=== PATIENT | female | born 2000 | race American Indian/Alaskan Native ===

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

== ENCOUNTER 2018-11-27 10:45 | Observation (INO) | payer MEDICAID, OTHER ==
--- NOTE | 2018-11-27 11:11 | Emergency Department Report ---
ED Female HPI - General Chief complaint: Vaginal Bleeding Stated complaint: BLEEDING 2WKS/PAIN Time Seen by Provider: 11/27/18 11:01 Source: patient Mode of arrival: Ambulatory Limitations: No Limitations - History of Present Illness Initial comments: Akilah is a 18 yo healthy female who is currently . She had 4 positive home tests. Her last normal menstrual period was around [place] time. She has had 12 days of vaginal spotting. Small amount of bleeding seen with wiping. She "just wants to know what's going on" with her . She had severe pelvic pain this morning. Pain is not as severe at this point. Pain is now localized to left pelvic region. This is Akilah's third . She has one full-term . She also had a previous . LMP around [place] time. EGA 8 weeks 4 days Complaint: vaginal bleeding -: Gradual, days(s) (12) Severity: mild Quality: cramping, sharp Consistency: intermittent, now resolved Improves with: none Worsens with: none Are you Now?: Yes Last Menstrual Period: 09/28/18 EDC: 07/05/19 Associated Symptoms: vaginal bleeding, abdominal pain - Related Data : 3 Para: 1 A: 1 Home Medications Medication Instructions Recorded Confirmed Last Taken No Known Home Medications [No 11/27/18 11/27/18 Unknown Reported Home Medications] Allergies Allergy/AdvReac Type Severity Reaction Status Date / Time pineapple AdvReac Itching Verified 09/11/16 18:32 ED Review of Systems ROS: Stated complaint: BLEEDING 2WKS/PAIN Other details as noted in HPI Comment: All other systems reviewed and negative Constitutional: denies: fever, malaise Respiratory: denies: cough Cardiovascular: denies: chest pain ED Past Medical Hx - Past Medical History Previous Medical History?: Yes Hx Hypertension: No Hx Congestive Heart Failure: No Hx Diabetes: No Hx Deep Vein Thrombosis: No Hx Renal Disease: No Hx Sickle Cell Disease: No Hx Seizures: No Hx Asthma: No Hx COPD: No Additional medical history: Vaginal delivery - Surgical History Additional Surgical History: x1 - Social History Smoking Status: Never Smoker Substance Use Type: None - Medications Home Medications: Home Medications Medication Instructions Recorded Confirmed Last Taken Type No Known Home Medications [No 11/27/18 11/27/18 Unknown History Reported Home Medications] ED Physical Exam - General Limitations: No Limitations General appearance: alert, in no apparent distress - Head Head exam: Present: atraumatic, normocephalic - Eye Eye exam: Present: normal appearance - ENT ENT exam: Present: mucous membranes moist - Neck Neck exam: Present: normal inspection, full ROM. Absent: tenderness, meningismus - Respiratory Respiratory exam: Present: normal lung sounds bilaterally. Absent: respiratory distress, wheezes, rales, rhonchi - Cardiovascular Cardiovascular Exam: Present: regular rate, normal rhythm, normal heart sounds. Absent: systolic murmur, diastolic murmur, rubs, gallop - GI/Abdominal GI/Abdominal exam: Present: soft, normal bowel sounds. Absent: distended, tenderness, guarding, rebound - Extremities Exam Extremities exam: Present: normal inspection - Back Exam Back exam: Present: normal inspection - Neurological Exam Neurological exam: Present: alert, oriented X3 - Psychiatric Psychiatric exam: Present: normal affect, normal mood - Skin Skin exam: Present: warm, dry, intact, normal color. Absent: rash ED Course Vital Signs 11/27/18 11/27/18 11/27/18 10:47 15:16 15:49 Temperature 97.8 F 98.4 F Pulse Rate 77 74 Respiratory 16 18 18 Rate Blood Pressure 103/71 Blood Pressure 125/68 [Left] O2 Sat by Pulse 100 100 Oximetry ED Medical Decision Making - Lab Data Result diagrams: 11/27/18 11:03 11/27/18 11:03 Laboratory Results - last 24 hr 11/27/18 11/27/18 11/27/18 11:01 11:03 11:03 WBC 4.3 L RBC 3.78 Hgb 12.7 Hct 37.3 MCV 99 H MCH 34 H MCHC 34 RDW 13.3 Plt Count 293 Lymph % (Auto) 45.7 H [place] % (Auto) 8.3 H Eos % (Auto) 0.8 Baso % (Auto) 0.9 Lymph # 2.0 [place] # 0.4 Eos # 0.0 Baso # 0.0 Seg Neutrophils % 44.3 Seg Neutrophils # 1.9 Sodium Potassium Chloride Carbon Dioxide Anion Gap BUN Creatinine Estimated GFR BUN/Creatinine Ratio Glucose Calcium HCG, Quant 7980 H Urine Color Yellow Urine Turbidity Slightly-cloudy Urine pH 7.0 Ur Specific [place] 1.024 Urine Protein 30 mg/dl Urine Glucose (UA) Neg Urine Ketones Neg Urine Blood Sm Urine Nitrite Neg Urine Bilirubin Neg Urine Urobilinogen 2.0 Ur Leukocyte Esterase Tr Urine WBC (Auto) 3.0 Urine RBC (Auto) 1.0 U Epithel Cells (Auto) 6.0 Urine Mucus Few Urine Yeast (Budding) Few Blood Type Antibody Screen 11/27/18 11/27/18 11:03 11:03 WBC RBC Hgb Hct MCV MCH MCHC RDW Plt Count Lymph % (Auto) [place] % (Auto) Eos % (Auto) Baso % (Auto) Lymph # [place] # Eos # Baso # Seg Neutrophils % Seg Neutrophils # Sodium 142 Potassium 4.1 Chloride 107.1 H Carbon Dioxide 23 Anion Gap 16 BUN 8 Creatinine 0.6 L Estimated GFR > 60 BUN/Creatinine Ratio 13 Glucose 91 Calcium 8.8 HCG, Quant Urine Color Urine Turbidity Urine pH Ur Specific [place] Urine Protein Urine Glucose (UA) Urine Ketones Urine Blood Urine Nitrite Urine Bilirubin Urine Urobilinogen Ur Leukocyte Esterase Urine WBC (Auto) Urine RBC (Auto) U Epithel Cells (Auto) Urine Mucus Urine Yeast (Budding) Blood Type B POSITIVE Antibody Screen Negative - Radiology Data Radiology results: report reviewed, image reviewed Pseudocyst gestational sac with a complex left ovarian cyst concerning for ectopic , findings given to me directly by radiologist via phone co nversation - Medical Decision Making Vision is 18 yo female who is approximately 8.6 weeks according to approximate LMP 09/28/2018. She presents with left pelvic pain today. Radiologist contacted me for findings concerning for ectopic . He suspected pseudogestational sac. He also visualized Left-sided complex ovarian cyst with blood flow. Considering patient's left-sided pain, mild vaginal spotting, elevated beta hCG 7900, I agree with radiologist's clinical impression of ectopic . I highly appreciate the assistance of reefer truck driver Dr. Billingsley who evaluated the patient here in the ED. Considering patient is stable, Dr. Billingsley who felt it was prudent to admit the patient to follow quantitative hCG levels considering the possibility of intrauterine with the equivocal ultrasound findings. The patient is admitted to service of Dr. Billingsley in stable condition. Critical Care Time: Yes Critical care time in (mins) excluding proc time.: 40 Critical care attestation.: If time is entered above; I have spent that time in minutes in the direct care of this critically ill patient, excluding procedure time. 40 minutes of critical care time excluding procedures were used in the care of the patient. Patient required multiple assessments and interventions. I reviewed the electronic medical record. I spoke with consultants involved in the care of the patient. ED Disposition Clinical Impression: Threatened in first trimester, Pelvic pain Disposition: OP ADMIT IP TO THIS HOSP Is pt being admited?: No Does the pt Need Aspirin: No Condition: Stable
[2018-11-27 11:14] LABS: Bilirubin,Urine NEG (Negative); Blood,Urine SM (Negative); Color,Urine Yellow (Yellow); Mucus,Urine FEW /HPF
[2018-11-27 11:30] LABS: Basophils % (Auto) 0.9 % (0.0-1.8); Eosinophils % (Auto) 0.8 % (0.0-4.3); Hematocrit 37.3 % (30.3-42.9); Hemoglobin 12.7 gm/dl (10.1-14.3); Lymphocytes % (Auto) 45.7 % (13.4-35.0); Mean Corpuscular HGB Conc 34 % (30-34); Mean Corpuscular Volume 99 fl (79-97); Monocytes # (Auto) 0.4 K/mm3 (0.0-0.8); Monocytes % (Auto) 8.3 % (0.0-7.3); Platelet Count 293 K/mm3 (140-440); Red Blood Count 3.78 M/mm3 (3.65-5.03); Red Cell Distribution Width 13.3 % (13.2-15.2)
[2018-11-27 11:43] LABS: BUN/Creatinine Ratio 13; Blood Urea Nitrogen 8 mg/dL (7-17); Calcium 8.8 mg/dL (8.4-10.2); Hemolysis Index 43
--- NOTE | 2018-11-27 14:23 | Ultrasound Report ---
FINAL REPORT EXAM: US OB < = 14 WEEKS FETUS HISTORY: vaginal bleeding pain TECHNIQUE: Transabdominal and transvaginal OB ultrasound. PRIORS: None currently available. FINDINGS: Uterus: 9.9 x 3.8 x 6.5 cm. Nabothian cysts measures 4 mm. Endometrial thickness measures 14.1 mm. In trauterine gestational sac. No yolk sac or pole. Right ovary: 1.8 x 1.2 x 1.5 cm. Cyst measures 1.1. 0.9 x 1.2 cm. No significant surrounding flow. Ov claudette flow identified. Left Ovary: 2.6 x 1.4 x 2.5 cm. Complex lesion measures 1.9 x 1.6 x 1.7 and 1.5 x 1.3 x 0.9 cm. Some surrounding flow around the larger lesion. Ovarian flow identified. Adnexal: Unremarkable. Small amount of free fluid in the cul-de-sac. IMPRESSION: Early gestational sac versus nonviable versus pseudo-gestational sac. Complex cyst in the left ovary with some surrounding flow may represent hemorrhagic cysts, corpus lut eal cyst, endometrioma, or ectopic . Please correlate for localized tenderness. Smaller nearby complex cyst in the left ovary. Follicular type cysts in the right ovary. Small amount of free fluid in cul-de-sac.
--- NOTE | 2018-11-27 14:26 | Ultrasound Report ---
FINAL REPORT EXAM: US OB TRANSVAGINAL HISTORY: vaginal bleeding pain TECHNIQUE: Transabdominal and transvaginal OB ultrasound. PRIORS: None currently available. FINDINGS: Uterus: 9.9 x 3.8 x 6.5 cm. Nabothian cysts measures 4 mm. Endometrial thickness measures 14.1 mm. In trauterine gestational sac. No yolk sac or pole. Right ovary: 1.8 x 1.2 x 1.5 cm. Cyst measures 1.1. 0.9 x 1.2 cm. No significant surrounding flow. Ov claudette flow identified. Left Ovary: 2.6 x 1.4 x 2.5 cm. Complex lesion measures 1.9 x 1.6 x 1.7 and 1.5 x 1.3 x 0.9 cm. Some surrounding flow around the larger lesion. Ovarian flow identified. Adnexal: Unremarkable. Small amount of free fluid in the cul-de-sac. IMPRESSION: Early gestational sac versus nonviable versus pseudo-gestational sac. Complex cyst in the left ovary with some surrounding flow may represent hemorrhagic cysts, corpus lut eal cyst, endometrioma, or ectopic . Please correlate for localized tenderness. Smaller nearby complex cyst in the left ovary. Follicular type cysts in the right ovary. Small amount of free fluid in cul-de-sac. November 27, 2018 at 1123 PST: I discussed the findings over phone with Dr. Trent.
[2018-11-27] MEDS ORDERED: NACL 0.9% 1000 ML 1,000 ML IV ONE (15:19)
[2018-11-27] MEDS ORDERED: MORPHINE IV ONE (15:20)
[2018-11-27] MEDS ORDERED: ZOFRAN IV ONE (15:20)
[2018-11-27 16:41] LABS: INR 1.07 (0.87-1.13)
--- NOTE | 2018-11-27 17:46 | History and Physical Report ---
History of Present Illness Date of examination: 11/27/18 Chief complaint: Vaginal spotting and pelvic paiin in History of present illness: This is a 18 yo female now who presented to ED complaining of vaginal spotting since 11/15/2018 with intermittent cramping. LMP 09/28/2018. States she did not know she was until recently. She experienced increased pelvic pain this am wsith persistent spotting. Feels better after MSO4 given. Past History Past Medical History: no pertinent history Past Surgical History: no surgical history Social history: other (marijuana). denies: smoking - Obstetrical History Expected Date of Delivery: 07/04/19 Actual Gestation: 8 Week(s) 5 Day(s) : 2 Medications and Allergies Allergies Allergy/AdvReac Type Severity Reaction Status Date / Time pineapple AdvReac Itching Verified 09/11/16 18:32 Home Medications Medication Instructions Recorded Confirmed Last Taken Type No Known Home Medications [No 11/27/18 11/27/18 Unknown History Reported Home Medications] Review of Systems All systems: negative Genitourinary: pelvic pain - Vital Signs Vital signs: Vital Signs Temp Pulse Resp BP Pulse Ox 97.8 F 77 16 103/71 100 11/27/18 10:47 11/27/18 10:47 11/27/18 10:47 11/27/18 10:47 11/27/18 10:47 Temp Pulse Resp BP Pulse Ox 98.4 F 74 18 125/68 100 11/27/18 15:16 11/27/18 15:16 11/27/18 15:49 11/27/18 15:16 11/27/18 15:16 - Physical Exam Breasts: Positive: deferred Lungs: Positive: Normal air movement Abdomen: Positive: normal appearance, soft. Negative: distention, tenderness, guarding Extremities: Positive: normal. Negative: tenderness, edema Results Result Diagrams: 11/27/18 11:03 11/27/18 11:03 Abnormal lab results 11/27/18 11/27/18 11/27/18 Range/Units 11:03 11:03 11:03 WBC 4.3 L (4.5-11.0) K/mm3 MCV 99 H (79-97) fl MCH 34 H (28-32) pg Lymph % (Auto) 45.7 H (13.4-35.0) % [place] % (Auto) 8.3 H (0.0-7.3) % Chloride 107.1 H (98-107) mmol/L Creatinine 0.6 L (0.7-1.2) mg/dL HCG, Quant 7980 H (0-4) mIU/mL All other labs normal. Ultrasound: report reviewed, image reviewed Assessment and Plan - Patient Problems (1) Pelvic pain affecting Current Visit: Yes Status: Acute Plan to address problem: Possible normal early , possible SAB, possible ectopic. At this time she does not have a surgical abdomen. Diagnoses discussed, options for management explained, she desires over night observation with repeat QBHCG and CBC.
[2018-11-27] MEDS ORDERED: COLACE PO PRN (21:42)
[2018-11-27] MEDS ORDERED: TYLENOL PO PRN (21:42)
[2018-11-28 08:15] LABS: Hematocrit 35.1 % (30.3-42.9); Hemoglobin 11.8 gm/dl (10.1-14.3); Mean Corpuscular HGB Conc 34 % (30-34); Mean Corpuscular Volume 98 fl (79-97); Platelet Count 249 K/mm3 (140-440); Red Blood Count 3.58 M/mm3 (3.65-5.03)
--- NOTE | 2018-11-28 10:19 | Progress Note ---
Assessment and Plan - Patient Problems (1) Pelvic pain affecting Current Visit: Yes Status: Acute Subjective - Subjective Date of service: 11/28/18 Principal diagnosis: Possible ectopic prognancy Interval history: Patient was observed over night, this am still with pain and spotting. Inadequate increase of QBHCG discussed. Findings now appear more consistent with ectopic . Discussed medical therapy and surgical intervention discussed. She's aware that with medical therapy she will require strict multiple office and possible hospital visits. Also she may require further methotrexate and or surgical intervention. She was also informed in with medical therapy ectopic may rupture which could be life-threatening. Surgical intervention was explained. She was informed that she may have to have her tube removed, scar tissue may occur that may prevent future pregnancies. Also the general risk associated with surgical intervention were discussed including, but not limited to, bleeding that may require blood transfusion with complications, infection can be life threatening or fatal, injury to her bowel or bladder, and major vascular injury. Questions were encouraged and answered. Consent was reviewed and signed. She voiced interest and desires to proceed with surgical intervention. Objective - Vital Signs Latest vital signs: Vital Signs Temp Pulse Resp BP BP Pulse Ox 11/28/18 08:52 98.2 F 63 16 104/57 100 11/28/18 08:33 98.2 F 65 16 104/57 100 11/28/18 04:30 98.2 F 58 L 18 87/44 89/52 100 11/28/18 01:50 98.4 F 57 L 20 112/61 98 11/27/18 21:00 98.7 F 56 L 18 106/62 100 11/27/18 18:40 97.5 F L 68 18 101/50 100 11/27/18 15:49 18 11/27/18 15:16 98.4 F 74 18 125/68 100 11/27/18 10:47 97.8 F 77 16 103/71 100 Intake and Output 11/27/18 11/28/18 11/28/18 22:59 06:59 14:59 Intake Total 20 Balance 20 Intake: IV 20 Right Antecubital 20 Other: Voiding Method Toilet Toilet Toilet # Voids 1 Void 200 Weight 56.699 kg - Exam Abdomen: Present: normal appearance, soft, tenderness (left lower quadrant), normal bowel sounds - Labs Labs: Abnormal lab results 11/27/18 11/27/18 11/27/18 Range/Units 11:03 11:03 11:03 WBC 4.3 L (4.5-11.0) K/mm3 RBC (3.65-5.03) M/mm3 MCV 99 H (79-97) fl MCH 34 H (28-32) pg RDW (13.2-15.2) % Lymph % (Auto) 45.7 H (13.4-35.0) % [place] % (Auto) 8.3 H (0.0-7.3) % Chloride 107.1 H (98-107) mmol/L Creatinine 0.6 L (0.7-1.2) mg/dL HCG, Quant 7980 H (0-4) mIU/mL 11/28/18 11/28/18 Range/Units 07:24 07:24 WBC 4.2 L (4.5-11.0) K/mm3 RBC 3.58 L (3.65-5.03) M/mm3 MCV 98 H (79-97) fl MCH 33 H (28-32) pg RDW 13.0 L (13.2-15.2) % Lymph % (Auto) (13.4-35.0) % [place] % (Auto) (0.0-7.3) % Chloride (98-107) mmol/L Creatinine (0.7-1.2) mg/dL HCG, Quant 8959 H (0-4) mIU/mL
[2018-11-28] MEDS ORDERED: ANCEF/STERILE WATER 2 GM/20 ML 2 GM/20 ML SYRINGE IV NR (11:00)
[2018-11-28] MEDS ORDERED: LACTATED RINGERS 1,000 ML IV SCH (11:00)
[2018-11-28] MEDS ORDERED: ZOFRAN ONE ×2 (11:34→11:41)
[2018-11-28] MEDS ORDERED: SUBLIMAZE ONE (11:40)
[2018-11-28] MEDS ORDERED: DECADRON ONE (11:41)
[2018-11-28] MEDS ORDERED: DIPRIVAN 10 MG/ML IV ONE (11:41)
[2018-11-28] MEDS ORDERED: ZEMURON IV ONE (11:41)
[2018-11-28] MEDS ORDERED: VERSED ONE (11:41)
[2018-11-28] MEDS ORDERED: QUELICIN ONE (11:41)
[2018-11-28] MEDS ORDERED: MARCAINE-EPI 0.25%-1:200,000 INFILTRATI ONE ×2 (11:42→11:51)
[2018-11-28] MEDS ORDERED: ANCEF/STERILE WATER 2 GM/20 ML 2 GM/20 ML SYRINGE IV ONE (11:42)
[2018-11-28] MEDS ORDERED: NACL 0.9% IR ONE ×2 (11:51)
--- NOTE | 2018-11-28 12:19 | Anesthesia Day of Surgery ---
Anesthesia Day of Surgery - Day of Surgery Patient Examined: Yes Patient H&P Reviewed: Yes Patient is NPO: Yes Beta Blockers: No Cardiac Clearance: No Pulmonary Clearance: No Javier's Test: N/A
--- NOTE | 2018-11-28 12:21 | Anesthesia Consultation ---
Anesthesia Consult and Med Hx - Airway Anesthetic Teeth Evaluation: Good ROM Head & Neck: Adequate Mental/Hyoid Distance: Adequate Mallampati Class: Class I Intubation Access Assessment: Probably Good - Pulmonary Exam CTA: Yes - Cardiac Exam Cardiac Exam: RRR - Pre-Operative Health Status ASA Pre-Surgery Classification: ASA1 Proposed Anesthetic Plan: General - Pulmonary Hx Asthma: No COPD: No Hx Pneumonia: No - Cardiovascular System Hx Hypertension: No - Central Nervous System Hx Seizures: No Hx Psychiatric Problems: No - Endocrine Hx Renal Disease: No Hx End Stage Renal Disease: No Hx Hypothyroidism: No Hx Hyperthyroidism: No - Hematic Hx Anemia: No Hx Sickle Cell Disease: No - Other Systems Hx Alcohol Use: No - Additional Comments Anesthesia Medical History Comments: ASA1 18 y.o.f. @ 8 weeks, 5 days presents for ectopic . Had 3 years ago with no anesthesia problems. States that she is nauseous - will pretreat with zofran before preceding with surgery.
[2018-11-28] MEDS ORDERED: DILAUDID IV PRN (12:26)
[2018-11-28] MEDS ORDERED: SUBLIMAZE IV PRN (12:26)
[2018-11-28] MEDS ORDERED: PHENERGAN PR PRN (12:26)
--- NOTE | 2018-11-28 13:56 | Post Operative Note ---
Pre-op diagnosis: Pelvic pain in , pelvic mass Post-op diagnosis: other (pelvic pain) Findings: No evidence of ectopic Procedure: Diagnostic laparoscopy Anesthesia: LUZ MARIA Surgeon: ZAIDA HENRY Estimated blood loss: minimal Pathology: none Condition: stable Disposition: PACU
--- NOTE | 2018-11-28 14:16 | Operative Report ---
Operative Report Operative Report: Date: 11/28/2018 Preoperative diagnosis: 1. 2. Pelvic pain 3. Pelvic mass by ultrasound Postoperative diagnosis: 1. 2. Pelvic pain 3. Pelvic mass by ultrasound Procedure: Diagnostic laparoscopy Surgeon: Indigo Billingsley MD Maintenance Trainer: [] Anesthesiologist: Dr. Santana Anesthesia: Gen. endotracheal anesthesia EBL: Minimal Findings: Normal pelvis organs, normal appendix Procedure: Patient was taken to the OR and placed in the supine position. After general anesthesia was induced, she was placed in the dorsal lithotomy position. Exam under anesthesia was unremarkable. She was then prepped and draped in the usual sterile fashion. After a timeout was performed, a Garnica catheter was introduced into the bladder with drainage of clear yellow urine. A sponge stick was then introduced into the vagina. Sterile gloves were placed and attention was turned to the abdomen. A supraumbilical incision was made through which was placed 5 mm bladeless trocar with laparoscope and camera attached. No bowel bladder or ureteral or major vascular injury was noted. The abdomen was insufflated. Patient was placed in Trendelenburg position. Above findings were noted. An incision was made in the suprapubic region approximately 2 cm superior to the symphysis pubis. A 5 mm bladelless trocar was introduced through this incision with direct visualization. No bowel bladder or ureteral major vessel injury was noted. Using a probe the tubes and ovaries were inspected.. No obvious evidence of ectopic was noted. There was no blood in the pelvis. The uterus was gently positioned anteriorly with the probe and the cul-de-sac was inspected. Again there was no evidence of ectopic in the posterior nor anterior cul-de-sac. Ovaries were grossly normal. Attention was turned to the right abdomen where the appendix was visualized to be grossly normal. The liver was evaluated and noted to have some adhesions. At this point the procedure was ended. The patient was taken out of Trendelenburg position. The CO2 was released. The trochars were removed. The incisions were reapproximated using 4-0 Vicryl in a subcuticular manner. The incisions were infused with quarter percent Marcaine without epinephrine. The sponge stick was removed, no bleeding noted. Patient tolerated procedure well stick to recovery room stable condition.
[2018-11-28] MEDS ORDERED: REGLAN IV PRN (14:26)
[2018-11-28] MEDS ORDERED: TYLENOL PO PRN (14:26)
[2018-11-28] MEDS ORDERED: REGLAN PO PRN (14:26)
--- NOTE | 2018-11-28 14:40 | Event Note ---
Date: 11/28/18 operative findings discussed with patients Sister Jennifer.
--- NOTE | 2018-11-28 14:45 | Discharge Summary ---
Providers - Providers Date of Admission: 11/27/18 17:39 Date of discharge: 11/28/18 Attending physician: ZAIDA HENRY [facility] Condition: Good Procedures: Diagnostic laparoscopy Hospital course: Patient was admitted for observation due to concerns for ectopic . On hospital day #2 she complained of persistent pain. With lab and clinical findings the decision was made to proceed with laparoscopy. Diagnostic laparoscopy was performed that was unremarkable. No obvious evidence for patient's pain nor ultrasound findings as noted. Was explained to her sister Izzy this may be indeed a missed however at this point since patient is not bleeding will observe she is to follow-up in the office this week Disposition: DC-01 TO HOME OR SELFCARE - Discharge Diagnoses (1) Pelvic pain affecting Status: Acute Qualifiers: Trimester: first trimester Qualified Code(s): O26.891 - Other specified related conditions, first trimester; R10.2 - Pelvic and perineal pain Core Measure Documentation - Palliative Care Palliative Care/ Comfort Measures: Not Applicable - Core Measures Any of the following diagnoses?: none Exam - Constitutional Vitals: Temp Pulse Resp BP Pulse Ox 97.9 F 62 16 113/64 100 11/28/18 14:24 11/28/18 14:24 11/28/18 14:24 11/28/18 14:24 11/28/18 13:55 - Respiratory Respiratory effort: normal - Cardiovascular Rhythm: regular Plan Activity: other (no sex. No driving.) Weight Bearing Status: Weight Bear as Tolerated Diet: regular Wound: open to air, keep clean and dry Special Instructions: no heavy lifting (greater than 25 pounds) Follow up with: ZAIDA HENRY MD [Staff Physician] - 12/02/18 9:45 am ([place]) IRVING ALFIE TAMAYO MD [Primary Care Provider] - 7 Days Forms: Work/School Release Form Prescriptions: HYDROcodone/APAP 5-325 [[place] 5-325 mg TAB] 1 - 2 each PO Q6H PRN #10 tablet PRN Reason: Pain
[2018-11-28] MEDS ORDERED: ANCEF/NS 1 GM/50 ML 1 GM/50 ML BAG IV SCH (20:00)
[2018-11-28 20:47] VITALS: BP 95/56
== END 2018-11-28 20:00 | disposition home or self-care (01) ==
LOC: ED 10:45 → OB 17:39
PROVIDERS: ADMIT Obstetrics & Gynecology; ATTEND Obstetrics & Gynecology
DX: O26.891 Other specified pregnancy related conditions, first trimester (principal); R10.2 Pelvic and perineal pain; Z3A.01 Less than 8 weeks gestation of pregnancy
CPT/HCPCS: 36415; 49320; 76801; 76817; 80048; 81001; 84702; 85025; 85027; 85610; 85730; 86850; 86900; 86901; 96374; 96375; 99291; A4217; G0378; J0330; J1100; J2250; J2270; J2405; J2704; J3010; J7030; J7120; J0690

== ENCOUNTER 2018-11-30 21:41 | Emergency (ER) | payer SELFPAY ==
[2018-11-30] MEDS ORDERED: NACL 0.9% 1000 ML 1,000 ML IV ONE (22:27)
--- NOTE | 2018-11-30 22:33 | Emergency Department Report ---
<MENA AU - Last Filed: 12/02/18 12:26> History of Present Illness - General Chief Complaint: Overdose Stated Complaint: POSS OVERDOSE Time Seen by Provider: 11/30/18 22:15 - Related Data Home Medications Medication Instructions Recorded Confirmed Last Taken RX: No Known Home Medications [No 12/01/18 12/01/18 Unknown Reported Home Medications] Allergies Allergy/AdvReac Type Severity Reaction Status Date / Time pineapple AdvReac Itching Verified 09/11/16 18:32 ED Past Medical Hx - Medications Home Medications: Home Medications Medication Instructions Recorded Confirmed Last Taken Type RX: No Known Home Medications [No 12/01/18 12/01/18 Unknown History Reported Home Medications] ED Medical Decision Making - Lab Data Result diagrams: 12/01/18 05:09 11/30/18 22:33 - Medical Decision Making This note is in regards to the patient's status. On 11/27/2018 pa tient test was positive. Ultrasound showed no IUP and the Quant was 7980. It was thought that the patient could've possibly had an ectopic . Patient was taken to the OR and had a laparoscopic exploration. This was done on 11/28/2018. Patient was found to not have any evidence of ectopic is closed. Patient returned to room in stable condition. On 224 quantitative rise to 8959. On 12/01/2018 quadrant is risen to 15,293. Ultrasound has shown IUP yolk sac however no pole is seen as of yet. Patient squats or much higher than expected for the ultrasound findings however there is IUP. Patient is continued to have some spotting and is a threatened miscarriage but is not an active miscarriage at this time. Patient is still medically cleared for psychiatric care. ED Disposition Clinical Impression: Drug overdose Disposition: DC-01 TO HOME OR SELFCARE Condition: Stable Instructions: Suicide Prevention for Adults (ED), Polysubstance Abuse (ED) Additional Instructions: Follow-up with your primary care physician, ASSISTED LIVING EXECUTIVE DIRECTOR, in any of the psychiatric outpatient referrals that you were given by the psychiatric team. Return to the emergency department immediately with any thoughts of harming yourself or othe rs, worsening of your symptoms come on with any acute distress. Referrals: [facility] [Outside] - 3-5 Days ZAIDA BILLINGSLEY MD [Staff Physician] - 7 Days <AUTUMN GARBER - Last Filed: 12/05/18 08:14> History of Present Illness - General Source: patient, EMS Mode of arrival: Stretcher Limitations: No Limitations - History of Present Illness Initial Comments: Patient is 18 years old female with history of multiple suicidal attempts before. Patient recently had a laparotomy secondary to ectopic . Patient overdosed on hydrocodone that she was given after surgery. Patient was given a total of 10 tablets of [place] 5/325 mg. Patient took 4 tablets at once. She also stated that she took another 3 tablets that she found in her roommates bathroom but she does not know the name of the medication. Patient stated that she was hurting too much and she tried to kill herself. Patient stated that she had an attempt at 5 month ago by overdosing also. Patient also stated that she tried to hang herself when she was in the middle school. Patient denied any h omicidal ideation. No visual or auditory hallucination. Patient had a diagnostic laparoscopic surgery by Dr. Billingsley on November 28/2019. Complaint: intentional overdose -: This evening Intent: suicide attempt How Overdose Was Discovered: called family/friend Context: Intentional Overdose: other (health related issue) Associated Symptoms: depression Treatments Prior to Arrival: none ED Review of Systems ROS: Stated complaint: POSS OVERDOSE Other details as noted in HPI Comment: All other systems reviewed and negative Constitutional: denies: chills, fever Respiratory: denies: cough, shortness of breath, SOB with exertion, SOB at rest Cardiovascular: denies: chest pain, palpitations Gastrointestinal: abdominal pain. denies: nausea, vomiting, diarrhea, constipation, hematemesis, melena, hematochezia Genitourinary: denies: urgency Neurological: denies: headache, weakness, numbness, paresthesias Psychiatric: depression, suicidal thoughts. denies: auditory hallucinations, visual hallucinations, homicidal thoughts ED Past Medical Hx - Past Medical History Hx Hypertension: No Hx Congestive Heart Failure: No Hx Diabetes: No Hx Deep Vein Thrombosis: No Hx Renal Disease: No Hx Sickle Cell Disease: No Hx Seizures: No Hx Asthma: No Hx COPD: No Hx HIV: No Additional medical history: Vaginal delivery - Surgical History Additional Surgical History: x1 - Social History Smoking Status: Never Smoker Substance Use Type: None ED Physical Exam - General Limitations: No Limitations General appearance: alert, in no apparent distress, anxious - Head Head exam: Present: atraumatic, normocephalic, normal inspection - Eye Eye exam: Present: normal appearance, PERRL - ENT ENT exam: Present: normal exam, normal orophraynx, mucous membranes moist - Neck Neck exam: Present: normal inspection, full ROM. Absent: tenderness, meningismus, lymphadenopathy, thyromegaly - Respiratory Respiratory exam: Present: normal lung sounds bilaterally - Cardiovascular Cardiovascular Exam: Present: regular rate, normal rhythm, normal heart sounds - GI/Abdominal GI/Abdominal exam: Present: soft, normal bowel sounds. Absent: distended, tenderness, guarding, rebound, rigid, organomegaly, mass, bruit, pulsatile mass, hernia - Extremities Exam Extremities exam: Present: normal inspection, full ROM, normal capillary refill ED Course Vital Signs 11/30/18 11/30/18 11/30/18 21:50 22:00 23:37 Temperature 98.7 F Pulse Rate 85 88 63 Respiratory 14 17 Rate Blood Pressure 123/85 107/66 Blood Pressure 115/64 [Right] O2 Sat by Pulse 98 99 Oximetry 12/01/18 12/01/18 12/01/18 00:00 00:19 01:00 Temperature Pulse Rate 63 89 61 Respiratory 15 13 14 Rate Blood Pressure 111/66 122/79 100/55 Blood Pressure [Right] O2 Sat by Pulse 98 99 100 Oximetry 12/01/18 12/01/18 12/01/18 02:00 03:01 05:00 Temperature 98.2 F Pulse Rate 64 79 65 Respiratory 14 14 16 Rate Blood Pressure 82/37 92/50 Blood Pressure 87/53 [Right] O2 Sat by Pulse 97 99 99 Oximetry 12/01/18 12/01/18 12/01/18 06:00 06:14 08:01 Temperature Pulse Rate 67 91 H 68 Respiratory 14 18 13 Rate Blood Pressure 89/51 105/57 Blood Pressure 94/50 [Right] O2 Sat by Pulse 100 100 Oximetry 12/01/18 12/01/18 12/01/18 08:07 09:00 10:01 Temperature Pulse Rate 69 71 69 Respiratory 15 16 24 Rate Blood Pressure 105/57 97/60 97/60 Blood Pressure [Right] O2 Sat by Pulse Oximetry 12/01/18 12/01/18 12/01/18 11:01 14:00 18:26 Temperature 99.6 F Pulse Rate 75 99 H Respiratory 14 15 Rate Blood Pressure 86/54 103/58 Blood Pressure 103/66 [Right] O2 Sat by Pulse 99 Oximetry 12/01/18 12/01/18 12/02/18 18:37 20:00 02:00 Temperature 98.1 F 98.5 F 98.3 F Pulse Rate 89 74 70 Respiratory 15 18 18 Rate Blood Pressure Blood Pressure 103/58 108/71 100/59 [Right] O2 Sat by Pulse 100 100 97 Oximetry 12/02/18 12/02/18 12/02/18 02:18 05:00 09:14 Temperature 98.9 F 98.9 F Pulse Rate 99 H 84 Respiratory 18 18 Rate Blood Pressure Blood Pressure 107/69 104/62 [Right] O2 Sat by Pulse 97 98 100 Oximetry 12/02/18 12/02/18 12/03/18 14:43 19:00 02:45 Temperature 99.0 F 98.9 F 98.2 F Pulse Rate 71 99 H 66 Respiratory 18 18 18 Rate Blood Pressure Blood Pressure 93/54 107/69 105/52 [Right] O2 Sat by Pulse 97 98 98 Oximetry 12/03/18 09:00 Temperature 99.1 F Pulse Rate 94 H Respiratory 18 Rate Blood Pressure Blood Pressure 114/62 [Right] O2 Sat by Pulse 99 Oximetry - Reevaluation(s) Reevaluation #1: 12/01/18 04:48 Patient evaluated by me multiple times. Patient sleeping comfortably, easily arousable. In no acute distress. Alert and oriented time 3. ED Medical Decision Making - Lab Data Result diagrams: 12/01/18 05:09 11/30/18 22:33 Critical Care Time: Yes Critical care time in (mins) excluding proc time.: 30 Critical care attestation.: If time is entered above; I have spent that time in minutes in the direct care of this critically ill patient, excluding procedure time. ED Disposition Is pt being admited?: No
[2018-11-30 22:48] LABS: Basophils % (Auto) 0.4 % (0.0-1.8); Eosinophils % (Auto) 0.6 % (0.0-4.3); Hematocrit 36.8 % (30.3-42.9); Hemoglobin 12.8 gm/dl (10.1-14.3); Lymphocytes % (Auto) 38.1 % (13.4-35.0); Mean Corpuscular HGB Conc 35 % (30-34); Mean Corpuscular Hemoglobin 34 pg (28-32); Mean Corpuscular Volume 97 fl (79-97); Monocytes # (Auto) 0.3 K/mm3 (0.0-0.8); Monocytes % (Auto) 6.1 % (0.0-7.3); Platelet Count 303 K/mm3 (140-440); Red Blood Count 3.79 M/mm3 (3.65-5.03); Red Cell Distribution Width 12.6 % (13.2-15.2)
[2018-11-30 22:54] LABS: Amorphous Crystals,Urine Few; Bilirubin,Urine NEG (Negative); Blood,Urine NEG (Negative); Color,Urine Yellow (Yellow); Protein,Urine <15 mg/dL mg/dL (Negative); Urobilinogen,Urine < 2.0 mg/dL (<2.0)
[2018-11-30 23:03] LABS: Amphetamine Screen,Urine PRESUMPTIVE NEGATIVE; Benzodiazepines Screen,Urine PRESUMPTIVE NEGATIVE; Cocaine Screen,Urine PRESUMPTIVE NEGATIVE; Methadone Screen,Urine PRESUMPTIVE NEGATIVE; Opiate Screen,Urine PRESUMPTIVE NEGATIVE
[2018-11-30 23:10] LABS: BUN/Creatinine Ratio 12; Blood Urea Nitrogen 6 mg/dL (7-17); Calcium 9.2 mg/dL (8.4-10.2); Hemolysis Index 5
[2018-11-30 23:25] LABS: Cannabinoid Screen,Urine PRESUMPTIVE POSITIVE
--- NOTE | 2018-11-30 23:38 | Ultrasound Report ---
FINAL REPORT PROCEDURE: US OB < = 14 WEEKS FETUS TECHNIQUE: Real-time transabdominal sonography of the uterus, placenta, amniotic fluid, adnexa, and fetus was performed with image documentation. Measurements were obtained to determine age/size. M-mode Doppler was used to document heartbeat. CPT 98832 HISTORY: overdose COMPARISON: No prior studies are available for comparison. FINDINGS: There is a single intrauterine gestational sac measuring 17.4 millimeters in diameter corresponding t o 6 weeks and 4 days of gestational age. Yolk sac is visualized. There is no evidence of pole. No subchorionic hemorrhage is noted. Right ovary measures 2.7 x 1.7 x 2.2 centimeters and left ovary measures 2.5 x 1.8 x 2.2 centimeters with normal echotexture. Uterus measures 7.8 x 3.9 x 5.8 centimeters. There is no free fluid in the c ul-de-sac. IMPRESSION: A single intrauterine gestation sac is noted without evidence of pole at the present time. This may represent a very early viable gestation versus early gestation failure. Clinical correlation fol low-up studies are recommended.
--- NOTE | 2018-11-30 23:39 | Ultrasound Report ---
FINAL REPORT PROCEDURE: US OB TRANSVAGINAL TECHNIQUE: Real-time transvaginal sonography of the uterus, placenta, amniotic fluid, adnexa, and fe tus was performed with image documentation. Measurements were obtained to determine age/size. M -mode Doppler was used to document heartbeat. CPT 99300 HISTORY: overdose COMPARISON: No prior studies are available for comparison. FINDINGS: CRL There is a single intrauterine gestational sac measuring 17.4 millimeters in diameter corresponding t o 6 weeks and 4 days of gestational age. Yolk sac is visualized. There is no evidence of pole. No subchorionic hemorrhage is noted. Right ovary measures 2.7 x 1.7 x 2.2 centimeters and left ovary measures 2.5 x 1.8 x 2.2 centimeters with normal echotexture. Uterus measures 7.8 x 3.9 x 5.8 centimeters. There is no free fluid in the c ul-de-sac. IMPRESSION: A single intrauterine gestation sac is noted without evidence of pole at the present time. This may represent a very early viable gestation versus early gestation failure. Clinical correlation fol low-up studies are recommended.
[2018-11-30 23:52] LABS: INR 1.03 (0.87-1.13)
[2018-11-30 23:53] LABS: Partial Thromboplastin Time 26.1 Sec. (24.2-36.6)
[2018-12-01] MEDS ORDERED: NACL 0.9% 1000 ML 1,000 ML ONE (01:53)
[2018-12-01] MEDS ORDERED: NACL 0.9% 1000 ML 1,000 ML IV ONE ×3 (01:55→05:00)
[2018-12-01 05:22] LABS: Hematocrit 32.1 % (30.3-42.9)
[2018-12-01 05:49] LABS: Alanine Aminotransferase 10 units/L (7-56); Albumin 4.1 g/dL (3.9-5)
[2018-12-01 05:54] LABS: Bilirubin,Direct < 0.2 mg/dL (0-0.2)
--- NOTE | 2018-12-01 21:28 | Consultation ---
History of Present Illness - Reason for Consult Consult date: 12/01/18 - History of Present Illness This is a 18yo female s/p diagnostic laparoscopy for pelvic pain to evaluate for ectopic . She had no evidence of tubal and was allowed home with Lortab and instructions to follow up in my office tomorrow however she apparently is admitted now for suicide attempt. She denies pain now but continues to have spotting, no heavy bleeding Past History Past Surgical History: Other (diagnostic laparoscopy) Medications and Allergies Allergies Allergy/AdvReac Type Severity Reaction Status Date / Time pineapple AdvReac Itching Verified 09/11/16 18:32 Home Medications Medication Instructions Recorded Confirmed Last Taken Type No Known Home Medications [No 12/01/18 12/01/18 Unknown History Reported Home Medications] Exam - Constitutional Vitals: Temp Pulse Resp BP Pulse Ox 98.1 F 89 15 103/58 100 12/01/18 18:37 12/01/18 18:37 12/01/18 18:37 12/01/18 18:37 12/01/18 18:37 Results - Labs CBC & Chem 7: 12/01/18 05:09 11/30/18 22:33 Labs: Abnormal lab results 11/30/18 11/30/18 11/30/18 Range/Units 22:33 22:33 22:33 MCH 34 H (28-32) pg MCHC 35 H (30-34) % RDW 12.6 L (13.2-15.2) % Lymph % (Auto) 38.1 H (13.4-35.0) % Sodium 135 L (137-145) mmol/L BUN 6 L (7-17) mg/dL Creatinine 0.5 L (0.7-1.2) mg/dL HCG, Quant (0-4) mIU/mL Salicylates < 0.3 L (2.8-20.0) mg/dL 12/01/18 Range/Units 11:53 MCH (28-32) pg MCHC (30-34) % RDW (13.2-15.2) % Lymph % (Auto) (13.4-35.0) % Sodium (137-145) mmol/L BUN (7-17) mg/dL Creatinine (0.7-1.2) mg/dL HCG, Quant 34015 H (0-4) mIU/mL Salicylates (2.8-20.0) mg/dL Assessment and Plan - Patient Problems (1) Threatened in first trimester Current Visit: No Status: Acute Plan to address problem: States still only spotting, no heavy bleeding. Slow rise of qbhcg, . Mostly likely abnormal intrauterine however TVUS now with clear yolk sac. Continue observation for now. Recommend follow up in our office after discharge home.
[2018-12-02] MEDS ORDERED: ZOFRAN ODT PO ONE (09:03)
--- NOTE | 2018-12-02 14:18 | Consultation ---
History of Present Illness - Reason for Consult Consult date: 12/02/18 Reason for consult: Mental Health Evaluation Requesting physician: AUTUMN GARBER - Chief Complaint Chief complaint: "I didn't want to kill myself" - History of Present Psychiatric Illness 18 years old AA female who presented to the ER for possible overdose of pain medication. Today the patient is calm and cooperative during the assessment. She stated that she was in pain and took 4 [place] 5/325 mg tablets. She admitted to taking 2 or 3 more pills that she cannot ID. She is adamant that she was in pain and that's why she took several pills. She denies she was trying to kill herself. She stated that she was bullied as a child and was placed in a mental health facility. She did not state why she was hospitalized as child. She denies SI/HI's and AVH's. She denies erratic sleep and a poor appetite. She denies alcohol consumption (etoh), but admitted to smoking marijuana. Medications and Allergies Allergies Allergy/AdvReac Type Severity Reaction Status Date / Time pineapple AdvReac Itching Verified 09/11/16 18:32 Home Medications Medication Instructions Recorded Confirmed Last Taken Type No Known Home Medications [No 12/01/18 12/01/18 Unknown History Reported Home Medications] Past psychiatric history - Past Medical History Past Medical History: other (Current ) Past Surgical History: Other (Recent Lapro procedure) - past Psychiatric treatment and history psychiatric treatment history: Inpatient several years ago. Denies a fam psy hx. - Social History Social history: lives with family Mental Status Exam - Vital signs Last Vital Signs Temp 98.9 F 12/02/18 09:14 Pulse 84 12/02/18 09:14 Resp 18 12/02/18 09:14 BP 104/62 12/02/18 09:14 Pulse Ox 100 12/02/18 09:14 - Exam Narrative exam: MSE: Appearance: calm, cooperative Behavior: regular eye contact Speech: regular rate and low tone Mood: "okay" Affect: congruent to mood Thought Process: circumstantial Thought Content: denies SI/HI's and AVH's Motor Activity: lying in bed Cognition: A/O x3 Insight: fair Judgment: variable Results Result Diagrams: 12/01/18 05:09 11/30/18 22:33 All other labs normal. Assessment and Plan Assessment and plan: Impression: Intentional vs Unintentional overdose. Cannabis Use DO. Today the patient is calm and cooperative during the assessment. the patient is . DDx; MDD Recommendation/Plan: Continue 1013 and gather collateral information to help determine proper treatment. Dispo: Once collateral information is gathered, proper dispo will be determined. Staffed with Dr Hastings.
[2018-12-03 09:52] VITALS: BP 114/62
--- NOTE | 2018-12-03 11:46 | Progress Note ---
Subjective - Reason for Consult Consult date: 12/03/18 Reason for consult: Psychiatry Follow-up - Chief Complaint Chief complaint: "I didn't want to kill myself" 18 years old AA female who presented to the ER for possible overdose of pain medication. Today the patient is calm and cooperative during the assessment. Per collateral information from the patient's mother Claudette Fernandez who's a nurse at [phone], she denies any previous suicide attempts by the patient. She stated that her daughter was placed in a intermediate because of her behavior as a teenager. She stated that her daughter have become a very responsible adult since becoming a mother. She stated that she do not believe the patient tried to kill herself when she took several Unadilla pills. She stated that she spoke with her daughter about the pain she was experiencing the day of the incident. She stated that she feel like her daughter is safe to be discharged. The patient is adamant that she never tried to kill herself. She explained to me the provider that she never ingested pills that belonged to another person. She stated that there was a empty pill bottle "from awhile ago" next to her prescribed medication which someone had already taken. She stated that she her life is m oving fast which is new for her, but feel confident that things will slow down. Per the patient's mother, she stated that she is her daughter's support system. The patient denies SI/HI's and AVH's. She stated that she look forward to being a mother to her unborn child. The patient currently have a small child. She stated that she would like a referral to see a therapist in her local area. Mental Status Exam - Vital signs Last Vital Signs Temp 99.1 F 12/03/18 09:00 Pulse 94 H 12/03/18 09:00 Resp 18 12/03/18 09:00 BP 114/62 12/03/18 09:00 Pulse Ox 99 12/03/18 09:00 - Exam Narrative exam: MSE: Appearance: calm, cooperative Behavior: regular eye contact Speech: regular rate and low tone Mood: "well" Affect: congruent to mood Thought Process: linear Thought Content: denies SI/HI's and AVH's Motor Activity: lying in bed Cognition: A/O x3 Insight: appropriate Judgment: appropriate Assessment and Plan Impression: Adjustment DO. Unintentional overdose. Cannabis Use DO. Today the patient is calm and cooperative during the assessment. The patient is . The patient is no threat to self. DDx; MDD Recommendation/Plan: Rescind 1013. Discussed the importance to take medications as prescribed. Dispo: The patient can follow up with [facility] for outpatient psy services (Therapy). Will staff with Dr Hastings.
--- NOTE | 2018-12-03 14:51 | Emergency Department Report ---
Blank Doc - Documentation Documentation: I was asked by the psychiatric team to provide discharge instructions/plan work for this patient. They evaluated her today and concluded that they do not feel that she is a danger to herself and have rescinded the patient's 1013. She was given outpatient referrals for psychiatric care by the psych team and also will need to follow-up with her [employer] [employer]. I went and spoke with the patient who continues to deny any suicidal ideations and says that the overdose was to try and treat her pain. The patient has been instructed to return to the emergency department immediately with any thoughts of harming herself or others, worsening of her symptoms, or with any acute distress.
== END 2018-12-03 14:45 | disposition home or self-care (01) ==
LOC: EEVIPCON 21:41 → ED 21:41
DX: O9A.211 Injury, poisoning and certain other consequences of external causes complicating pregnancy, first trimester (principal); T40.2X2A Poisoning by other opioids, intentional self-harm, initial encounter; O20.0 Threatened abortion; F12.10 Cannabis abuse, uncomplicated; Z3A.01 Less than 8 weeks gestation of pregnancy; Z91.018 Allergy to other foods; Y92.89 Other specified places as the place of occurrence of the external cause
CPT/HCPCS: 36415; 76801; 76817; 80048; 80076; 80307; 81001; 82962; 84702; 85014; 85018; 85025; 85610; 85730; 93005; 93010; 99285; G0480; J7030; 80320; Q0162